=== PATIENT | male | born 1955 | race Caucasian/White ===

== ENCOUNTER 2022-08-20 12:35 | Emergency (ER) | payer OTHER ==
[2022-08-20 12:45] VITALS: BP 137/62; PULSE 90; RESP 19; TEMP 98.6; BMI 29.0
[2022-08-20 14:02] LABS: URINE APPEARANCE TURBID; URINE BILIRUBIN NEGATIVE (NEGATIVE); URINE COLOR YELLOW; URINE GLUCOSE (UA) NEGATIVE (NEGATIVE); URINE KETONE TRACE (NEGATIVE); URINE LEUK ESTERASE NEGATIVE (NEGATIVE); URINE NITRITE NEGATIVE (NEGATIVE); URINE PROTEIN NEGATIVE (NEGATIVE); URINE UROBILINOGEN 0.2 mg/dL (0.2-1.0)
[2022-08-20] MEDS ORDERED: traMADol HCL 50 MG TABLET PO ONE (14:30)
[2022-08-20] MEDS ORDERED: traMADol HCL 50 MG TABLET ONE (14:32)
== END 2022-08-20 15:15 | disposition home or self-care (01) ==
LOC: JER 12:35 → JERFT 12:35
DX: M54.50 Low back pain, unspecified (principal); R10.31 Right lower quadrant pain; R10.32 Left lower quadrant pain
CPT/HCPCS: 81003; 87086; 99283-25

== ENCOUNTER 2022-11-05 05:14 | Emergency (ER) | payer OTHER ==
[2022-11-05 05:40] VITALS: BMI 27.9
[2022-11-05] MEDS ORDERED: amLODIPine BESYLATE 10 MG TABLET (FP) PO ONE (09:12)
[2022-11-05] MEDS ORDERED: METOPROLOL TARTRATE 50 MG TABLET (FP) PO ONE (09:12)
[2022-11-05] MEDS ORDERED: hydrALAZINE HCL 25 MG TABLET (FP) PO ONE (09:12)
[2022-11-05] MEDS ORDERED: TACROLIMUS ANHYDROUS 5 MG CAPSULE PO ONE (09:13)
[2022-11-05] MEDS ORDERED: hydrALAZINE HCL 25 MG TABLET (FP) ONE (09:29)
[2022-11-05] MEDS ORDERED: amLODIPine BESYLATE 10 MG TABLET (FP) ONE (09:29)
[2022-11-05] MEDS ORDERED: METOPROLOL TARTRATE 25 MG TABLET (FP) ONE (09:35)
[2022-11-05 09:53] LABS: BASO % 0.7 % (0-2.0); EOS % 2.9 % (0-4.5); HEMATOCRIT 38.6 % (35.4-49); HEMOGLOBIN 11.8 GM/dL (11.7-16.9); LYMPH % 37.2 % (8-40); MCH 23.7 pg (25.7-33.7); MCHC 30.7 g/dl (32.0-35.9); MEAN CELL VOLUME 77.2 fl (80-96); MEAN PLT VOLUME 8.9 fl (7.5-11.1); MONO % 16.3 % (3.8-10.2); NEUT % 42.9 % (42.8-82.8); PLATELET COUNT 167 10^3/uL (134-434); RDW 18.5 % (11.9-15.9); WHITE BLOOD COUNT 3.9 K/mm3 (4.0-10.0)
[2022-11-05 09:59] LABS: INR 1.17 (0.83-1.09); PROTHROMBIN TIME (PATIENT) 13.5 SEC (9.7-13.0)
[2022-11-05 10:20] LABS: ALBUMIN 3.9 g/dl (3.4-5.0); BLOOD UREA NITROGEN 16.1 mg/dL (7-18); CALCIUM 9.7 mg/dL (8.5-10.1); MAGNESIUM 1.6 mg/dL (1.8-2.4)
[2022-11-05 10:23] LABS: CREATININE 1.1 mg/dL (0.55-1.3); PHOSPHOROUS 2.9 mg/dL (2.5-4.9)
[2022-11-05 10:24] LABS: BILIRUBIN,TOTAL 0.4 mg/dL (0.2-1); TOT PROT 7.2 g/dl (6.4-8.2)
[2022-11-05 12:51] VITALS: RESP 20
[2022-11-05 13:40] LABS: PH,URINE 7.5 (5.0-8.0); URINE APPEARANCE CLEAR; URINE BILIRUBIN NEGATIVE (NEGATIVE); URINE COLOR YELLOW; URINE GLUCOSE (UA) NEGATIVE (NEGATIVE); URINE KETONE NEGATIVE (NEGATIVE); URINE LEUK ESTERASE NEGATIVE (NEGATIVE); URINE NITRITE NEGATIVE (NEGATIVE); URINE PROTEIN NEGATIVE (NEGATIVE); URINE UROBILINOGEN 0.2 mg/dL (0.2-1.0)
[2022-11-05 15:50] VITALS: BP 167/77; PULSE 88; TEMP 97.8
== END 2022-11-05 15:50 | disposition home or self-care (01) ==
LOC: JER 05:14
PROC: 3E033GC Introduction of Other Therapeutic Substance into Peripheral Vein, Percutaneous Approach (ICD-10-PCS; principal; 2022-11-05)
DX: R10.31 Right lower quadrant pain (principal); I10 Essential (primary) hypertension; Z94.0 Kidney transplant status
CPT/HCPCS: 36415; 74176-TC; 80053; 81003; 83690; 83735; 84100; 85025; 85610; 93005; 93010; 96374; 99285-25

== ENCOUNTER 2024-09-10 06:46 | Emergency (ER) | payer OTHER ==
[2024-09-10 07:01] VITALS: BP 153/67; PULSE 85; RESP 18; TEMP 98.4; BMI 29.0
[2024-09-10] MEDS ORDERED: ACETAMINOPHEN 500 MG TABLET (FP) ONE (07:50)
[2024-09-10] MEDS ORDERED: guaiFENesin/D-METHORPHAN HB 10 ML UNIT-DOSE CUPS ONE (07:50)
[2024-09-10] MEDS: guaiFENesin 200 MG/10 ML 10 ML UNIT-DOSE CUPS PO ONE (07:56)
[2024-09-10] MEDS: ACETAMINOPHEN 500 MG TABLET (FP) PO ONE (07:56)
[2024-09-10 08:22] LABS: HEMATOCRIT 47.3 % (35.4-49); HEMOGLOBIN 14.8 GM/dL (11.7-16.9); MCH 27.1 pg (25.7-33.7); MCHC 31.3 g/dl (32.0-35.9); MEAN CELL VOLUME 86.8 fl (80-96); MEAN PLT VOLUME 8.4 fl (7.5-11.1); PLATELET COUNT 141 10^3/uL (134-434); RBC 5.45 M/mm3 (4.00-5.60); RDW 16.2 % (11.9-15.9); WHITE BLOOD COUNT 2.6 K/mm3 (4.0-10.0)
[2024-09-10 09:36] LABS: CALCIUM 9.7 mg/dL (8.5-10.1)
[2024-09-10 09:37] LABS: ALBUMIN 3.6 g/dl (3.4-5.0); BLOOD UREA NITROGEN 12.3 mg/dL (7-18)
[2024-09-10 09:40] LABS: CREATININE 1.2 mg/dL (0.55-1.3)
[2024-09-10 09:41] LABS: BILIRUBIN,TOTAL 0.6 mg/dL (0.2-1); TOT PROT 7.2 g/dl (6.4-8.2)
[2024-09-10 10:03] LABS: ANISOCYTOSIS 0; MACROCYTOSIS 0
== END 2024-09-10 10:12 | disposition home or self-care (01) ==
LOC: JER 06:46
DX: R50.9 Fever, unspecified (principal); J06.9 Acute upper respiratory infection, unspecified; R05.9 Cough, unspecified; R51.9 Headache, unspecified; R09.81 Nasal congestion; M79.10 Myalgia, unspecified site; Z20.822 Contact with and (suspected) exposure to COVID-19; Z20.828 Contact with and (suspected) exposure to other viral communicable diseases
CPT/HCPCS: 0241U-QW; 36415; 71046-TC-FY; 80053; 85025; 99284-25